=== PATIENT | male | born 1945 | race Hispanic/Latino ===

== ENCOUNTER → 2021-03-04 | Outpatient (CLI) | payer OTHER ==
[~2021-03-04] MED LIST: ASPIR 8181 MG PO; CARVEDILOL3.125 MG PO; HYDROCHLOROTHIA25 MG PO; LISINOPRIL10 MG PO; LOVASTATIN40 MG PO
== END ==
LOC: RAD 08:35
PROVIDERS: ATTEND Internal Medicine
DX: M25.561 Pain in right knee (principal)
CPT/HCPCS: 93971

== ENCOUNTER → 2021-06-10 | Outpatient (CLI) | payer MEDICARE | LOC: RAD 14:47 | PROVIDERS: ATTEND Family Medicine | DX: Z01.818 Encounter for other preprocedural examination (principal) | CPT/HCPCS: 71046 ==